=== PATIENT | female | born 1980 | race Caucasian/White ===

== ENCOUNTER → 2016-05-04 | Outpatient (CLI) | payer MEDICARE, MEDICAID ==
[~2016-05-04] MED LIST: 00186-0370-20 IH; ATIVAN0.5 MG PO; BETA BLOCKER PO; BUSPAR10 MG PO; DEPAKOTE125 MG PO; ESZOPICOLONE; KEFLEX500 MG PO; LEVOTHYROXIN0.025 MG PO; MELAT3MGTAB PO; MELATONIN0.3 MG PO; MELATONIN1 M1 PO; NAVANE1 MG PO; NYSTATIN OR100 MU/ML PO; PHENTERMINE15 MG PO; PREVACID 30MG30 M1 PO; PRILOSEC10 MG PO; SEROQUEL; SILENOR3 MG PO; SINEQUAN 2525 MG/CAP PO; SONATA5 MG; SYNTHROID0.1 MG/TAB PO; TRAZADONE HYDR100 MG PO; ZOFRAN4 MG PO; ZOLPIDEM5 MG PO; ZYPREXA10 MG PO; ZYPREXA5 MG PO
[2016-05-04 11:55] LABS: CALCIUM 9.9 mg/dL (8.4-10.2); CREATININE, serum 0.92 mg/dL (0.52-1.25); POTASSIUM 4.3 mmol/L (3.4-5.0)
[2016-05-04 12:26] LABS: THYROID STIMULATING HORMONE 1.06 uIU/mL (0.465-4.680)
== END ==
LOC: COL.LAB 11:03
DX: R07.89 Other chest pain (principal)

== ENCOUNTER 2017-11-05 16:20 | Emergency (ER) | payer MEDICARE, MEDICAID ==
[~2017-11-05] VITALS: Ht 157.5 cm; Wt 142.3 kg
[2017-11-05 16:23] VITALS: TEMP 98.8
[2017-11-05] MEDS ORDERED: CLARITIN 1010 MG/TAB PO (17:00)
[2017-11-05] MEDS ORDERED: KLONOPIN 0.5MG0.5 MG PO (17:00)
[2017-11-05] MEDS ORDERED: ZANTAC 150150 MG (17:01)
[2017-11-05] MEDS ORDERED: FLONASE SENSIM9.9 ML NS (17:01)
[2017-11-05 17:20] VITALS: BP 138/101; PULSE 94
== END 2017-11-05 17:24 | disposition home or self-care (01) ==
LOC: COL.ER 16:20
DX: I10 Essential (primary) hypertension (principal); K21.9 Gastro-esophageal reflux disease without esophagitis; F41.9 Anxiety disorder, unspecified; Z79.51 Long term (current) use of inhaled steroids; Z88.1 Allergy status to other antibiotic agents

== ENCOUNTER → 2018-03-06 | Outpatient (CLI) | payer MEDICARE, MEDICAID ==
[~2018-03-06] MED LIST changes: +CLARITIN 1010 MG/TAB PO; +FLONASE SENSIM9.9 ML NS; +KLONOPIN 0.5MG0.5 MG PO; +ZANTAC 150150 MG
== END ==
LOC: COL.RAD 07:37
DX: R94.5 Abnormal results of liver function studies (principal)

== ENCOUNTER → 2018-08-31 | Outpatient (CLI) | payer MEDICARE, MEDICAID ==
[~2018-08-31] VITALS: Ht 157.5 cm; Wt 117.7 kg
[~2018-08-31] MED LIST changes: +CLINDAGEL 40 ML40 ML TOP; +PRILOSEC 20MG20 MG PO; -PRILOSEC10 MG PO; -SILENOR3 MG PO; +SMZ/TMP PO; +TOPAMAX 25MG25 M1 PO; -ZANTAC 150150 MG; +ZANTAC 150150 MG PO; +ZESTRIL 5MG5 MG PO
[2018-08-31 09:04] VITALS: BP 120/76; PULSE 76
== END ==
LOC: LIGHT 07-20 14:14
DX: E03.9 Hypothyroidism, unspecified (principal); K21.9 Gastro-esophageal reflux disease without esophagitis; J45.909 Unspecified asthma, uncomplicated; E66.01 Morbid (severe) obesity due to excess calories; Z68.42 Body mass index [BMI] 45.0-49.9, adult; Z71.3 Dietary counseling and surveillance
CPT/HCPCS: G0463

== ENCOUNTER → 2018-10-26 | Outpatient (CLI) | payer MEDICARE, MEDICAID ==
[~2018-10-26] VITALS: Ht 157.5 cm; Wt 116.6 kg
[~2018-10-26] MED LIST changes: +D3-5050000 IU PO
[2018-10-26 09:05] VITALS: BP 108/76; PULSE 112
== END ==
LOC: LIGHT 09-21 10:56
DX: E03.9 Hypothyroidism, unspecified (principal); K21.9 Gastro-esophageal reflux disease without esophagitis; E66.01 Morbid (severe) obesity due to excess calories; Z68.42 Body mass index [BMI] 45.0-49.9, adult; Z71.3 Dietary counseling and surveillance
CPT/HCPCS: G0463

== ENCOUNTER → 2018-11-30 | Outpatient (CLI) | payer MEDICARE, MEDICAID ==
[~2018-11-30] VITALS: Ht 157.5 cm; Wt 116.8 kg
[2018-11-30 09:51] VITALS: BP 126/74; PULSE 96
== END ==
LOC: LIGHT 09:39
DX: E03.9 Hypothyroidism, unspecified (principal); K21.9 Gastro-esophageal reflux disease without esophagitis; E66.01 Morbid (severe) obesity due to excess calories; Z68.42 Body mass index [BMI] 45.0-49.9, adult; Z71.3 Dietary counseling and surveillance
CPT/HCPCS: G0463

== ENCOUNTER → 2019-10-16 | Outpatient (CLI) | payer MEDICARE, MEDICAID ==
[~2019-10-16] VITALS: Ht 157.5 cm; Wt 99.3 kg
[~2019-10-16] MED LIST changes: +SINGULAIR 110 MG/TAB PO; -SYNTHROID0.1 MG/TAB PO; +SYNTHROID0.112 MG/T PO; +ZYRTEC 10MG10 MG PO
[2019-10-16 15:46] VITALS: BP 116/74; PULSE 60
== END ==
LOC: LIGHT 09-18 09:50
DX: E66.01 Morbid (severe) obesity due to excess calories (principal); Z68.41 Body mass index [BMI] 40.0-44.9, adult; E03.9 Hypothyroidism, unspecified; K21.9 Gastro-esophageal reflux disease without esophagitis
CPT/HCPCS: G0463

== ENCOUNTER → 2020-03-11 | Outpatient (CLI) | payer MEDICARE, MEDICAID | LOC: MC.RAD 10:49 | DX: Z12.31 Encounter for screening mammogram for malignant neoplasm of breast (principal) ==

== ENCOUNTER → 2020-05-22 | Outpatient (CLI) | payer MEDICARE, MEDICAID | LOC: COL.LAB 11:03 | DX: J30.1 Allergic rhinitis due to pollen (principal) ==

== ENCOUNTER → 2021-11-02 | Outpatient (CLI) | payer MEDICARE, MEDICAID | LOC: COL.RAD 10-27 12:30 | DX: R51.9 Headache, unspecified (principal) | CPT/HCPCS: A9575 ==

== ENCOUNTER → 2021-12-15 | Outpatient (CLI) | payer MEDICARE, MEDICAID | LOC: MC.RAD 16:42 | DX: Z12.31 Encounter for screening mammogram for malignant neoplasm of breast (principal) ==

== ENCOUNTER → 2023-04-26 | Outpatient (CLI) | payer MEDICARE, MEDICAID | LOC: MC.RAD 13:38 | DX: Z12.31 Encounter for screening mammogram for malignant neoplasm of breast (principal); N63.10 Unspecified lump in the right breast, unspecified quadrant ==